=== PATIENT | female | born 1990 | race Two or more races ===

== ENCOUNTER 2017-06-28 14:36 | Emergency (ER) | payer MEDICAID ==
[~2017-06-28] VITALS: Ht 170.2 cm; Wt 72.1 kg
[~2017-06-28 14:36] MED LIST: TEVA
[2017-06-28 15:18] LABS: CULTURE INDICATED? YES; MICROSCOPIC INDICATED
[2017-06-28 15:28] LABS: BASOPHILS # (AUTO) 0.04 x10^3/uL (0-0.1); BASOPHILS % (AUTO) 0 % (0-1); EOSINOPHILS # (AUTO) 0.21 x10^3/uL (0-0.4); EOSINOPHILS % (AUTO) 2 % (1-7); LYMPHOCYTES # (AUTO) 2.57 x10^3/uL (1-3.4); LYMPHOCYTES % (AUTO) 26 % (22-44); MD NO; MEAN CORPUSCULAR HEMOGLOBIN 30.5 pg (27.0-34.8); MEAN CORPUSCULAR HGB CONC 33.1 g/dL (32.4-35.8); MEAN CORPUSCULAR VOLUME 91.9 fL (80-100); MEAN PLATELET VOLUME 8.2 fL (7.4-10.4); MONOCYTES # (AUTO) 0.67 x10^3/uL (0.2-0.8); MONOCYTES % (AUTO) 7 % (2-9); NEUTROPHILS # (AUTO) 6.28 x10^3/uL (1.8-6.8); NEUTROPHILS % (AUTO) 64 % (42-75); PLATELET COUNT 366 x10^3/uL (130-400); RED BLOOD COUNT 4.82 x10^6/uL (3.82-5.3); RED CELL DISTRIBUTION WIDTH 12.6 % (9.6-15.2)
[2017-06-28 15:38] LABS: ANION GAP 5 mmol/L (5-15); CALCIUM 8.7 mg/dL (8.5-10.1); CHLORIDE 110 mmol/L (98-107)
[2017-06-28 15:43] LABS: ALANINE AMINOTRANSFERASE 22 U/L (12-78); ALKALINE PHOSPHATASE 64 U/L (45-117); BILIRUBIN,TOTAL 0.3 mg/dL (0.2-1.0); CREATININE 0.98 mg/dL (0.55-1.02); TOTAL PROTEIN 7.3 g/dL (6.4-8.2)
[2017-06-28] MEDS ORDERED: CEFTRIAXONE 250 MG IM ONE (17:30)
[2017-06-28] MEDS ORDERED: AZITHROMYCIN 500 MG TABLET PO ONE (17:30)
[2017-06-28 17:41] LABS: WET PREP WBCS MODERATE (FEW)
[2017-06-28] MEDS ORDERED: CEFTRIAXONE 1,000 MG ONE (17:47)
[2017-06-28] MEDS ORDERED: AZITHROMYCIN 250 MG TABLET ONE (17:48)
[2017-06-28 18:09] LABS: CLUE CELLS NONE SEEN (NONE SEEN)
[2017-06-28 20:39] VITALS: BP 111/78
== END 2017-06-28 18:37 ==
LOC: ED 18:10
DX: A64 Unspecified sexually transmitted disease (principal); N89.8 Other specified noninflammatory disorders of vagina
CPT/HCPCS: 36415; 80053; 81001; 84703; 85025; 87086; 87210; 87491; 87591; 87808; 96372; 99284; J0696

== ENCOUNTER 2017-10-09 22:03 | Emergency (ER) | payer MEDICAID ==
[~2017-10-09] VITALS: Ht 170.2 cm; Wt 68.0 kg
[2017-10-09] MEDS ORDERED: CEFTRIAXONE 250 MG IM ONE (23:00)
[2017-10-09] MEDS ORDERED: AZITHROMYCIN 500 MG TABLET PO ONE (23:00)
[2017-10-09] MEDS ORDERED: AZITHROMYCIN 250 MG TABLET ONE (23:04)
[2017-10-09] MEDS ORDERED: CEFTRIAXONE 1,000 MG ONE (23:04)
[2017-10-09 23:12] LABS: HCG UR SG 1.029 (1.003-1.030); MICROSCOPIC NOT IND
[2017-10-09 23:13] LABS: CULTURE INDICATED? NO
[2017-10-09 23:54] VITALS: BP 118/79
== END 2017-10-09 23:56 | disposition home or self-care (01) ==
LOC: ED 23:16
DX: N89.8 Other specified noninflammatory disorders of vagina (principal); Z20.2 Contact with and (suspected) exposure to infections with a predominantly sexual mode of transmission
CPT/HCPCS: 81003; 81025; 87491; 87591; 96372; 99284; J0696

== ENCOUNTER 2018-08-20 14:56 | Emergency (ER) | payer MEDICAID ==
[~2018-08-20] VITALS: Ht 170.2 cm; Wt 64.6 kg
--- NOTE | 2018-08-20 15:38 | NUR ---
PT TO ROOM FROM LOBBY, KELLEE MITCHELL IN TO ASSESS PT
--- NOTE | 2018-08-20 15:43 | NUR ---
PT REPORTS PAIN IN LLQ, N/V, FATIGUE THAT STARTED ABOUT 10 DAYS AGO. PT WENT TO [facility] ON 08/17 AND WAS PERSCRIBED OMEPRAZOLE, SUCRLFATE, AND PEPCID. PT STATES SHE HAS BEEN TAKING THESE MEDICATIONS AND THEY HAVE NOT HELPED HER SYMPTOMS.
[2018-08-20 15:58] LABS: BASOPHILS # (AUTO) 0.04 x10^3/uL (0-0.1); BASOPHILS % (AUTO) 0 % (0-1); EOSINOPHILS # (AUTO) 0.08 x10^3/uL (0-0.4); EOSINOPHILS % (AUTO) 1 % (1-7); LYMPHOCYTES # (AUTO) 1.87 x10^3/uL (1-3.4); LYMPHOCYTES % (AUTO) 17 % (22-44); MD NO; MEAN CORPUSCULAR HEMOGLOBIN 31.1 pg (27.0-34.8); MEAN CORPUSCULAR HGB CONC 33.3 g/dL (32.4-35.8); MEAN CORPUSCULAR VOLUME 93.5 fL (80-100); MEAN PLATELET VOLUME 7.9 fL (7.4-10.4); MONOCYTES # (AUTO) 0.71 x10^3/uL (0.2-0.8); MONOCYTES % (AUTO) 6 % (2-9); NEUTROPHILS # (AUTO) 8.59 x10^3/uL (1.8-6.8); NEUTROPHILS % (AUTO) 76 % (42-75); PLATELET COUNT 385 x10^3/uL (130-400)
[2018-08-20 16:10] LABS: ALANINE AMINOTRANSFERASE 40 U/L (12-78); ANION GAP 5 mmol/L (5-15); CALCIUM 9.5 mg/dL (8.5-10.1); CHLORIDE 105 mmol/L (98-107)
[2018-08-20 16:15] LABS: ALKALINE PHOSPHATASE 67 U/L (45-117); BILIRUBIN,TOTAL 0.7 mg/dL (0.2-1.0); CREATININE 1.06 mg/dL (0.55-1.02); TOTAL PROTEIN 7.4 g/dL (6.4-8.2)
[2018-08-20 16:17] LABS: CULTURE INDICATED? YES; MICROSCOPIC INDICATED
[2018-08-20 16:58] VITALS: BP 107/77
--- NOTE | 2018-08-20 16:58 | NUR ---
PT RESTING ON ZMP. VSS. NO REQUESTS AT THIS TIME.
[2018-08-20] MEDS ORDERED: MAALOX/HYOSCYAMINE/LIDOCAINE 45 ML BTL ONE (17:24)
[2018-08-20] MEDS ORDERED: MAALOX/HYOSCYAMINE/LIDOCAINE 45 ML BTL PO ONE (17:30)
--- NOTE | 2018-08-20 18:07 | NUR ---
ER MD IN TO DISCUSS POC WITH PT. PT UP FOR DISCHAGE TO FOLLOW UP WITH GI SPECIALIST.
== END 2018-08-20 18:19 | disposition home or self-care (01) ==
LOC: ED 18:00
DX: K29.00 Acute gastritis without bleeding (principal); F17.200 Nicotine dependence, unspecified, uncomplicated; Z90.49 Acquired absence of other specified parts of digestive tract
CPT/HCPCS: 36415; 76830; 80053; 81001; 83690; 84703; 85025; 87086; 93005; 99284